=== PATIENT | male | born 1985 | race African-American/Black ===

== ENCOUNTER 2018-01-22 22:36 | Emergency (ER) | payer OTHER, SELFPAY ==
--- NOTE | 2018-01-23 06:54 | RAD ---
SOFT TISSUE NECK: Date: 01/22/18 FINDINGS: No opaque foreign bodies were seen. The epiglottis appears normal and the soft tissues are normal in thickness. IMPRESSION: No significant findings. POS: HOME
== END 2018-01-22 23:25 | disposition home or self-care (01) ==
LOC: BURERS 22:36
DX: J02.9 Acute pharyngitis, unspecified (principal); F17.210 Nicotine dependence, cigarettes, uncomplicated
CPT/HCPCS: 70360

== ENCOUNTER 2019-01-02 00:37 | Emergency (ER) | payer OTHER, SELFPAY ==
[2019-01-02] MEDS ORDERED: HYDROcodone/Acetaminophen 10/325 mg Tablet ONE (00:55)
[2019-01-02] MEDS ORDERED: AMOXicillin 250 MG CAP ONE (00:56)
== END 2019-01-02 01:00 | disposition home or self-care (01) ==
LOC: BURERS 00:37
DX: K04.7 Periapical abscess without sinus (principal); F17.210 Nicotine dependence, cigarettes, uncomplicated; Z79.899 Other long term (current) drug therapy
CPT/HCPCS: 99282

== ENCOUNTER 2022-06-20 11:03 | Emergency (ER) | payer SELFPAY | END 2022-06-20 11:29 | disposition home or self-care (01) | LOC: BURERS 11:03 | DX: K08.89 Other specified disorders of teeth and supporting structures (principal); F17.210 Nicotine dependence, cigarettes, uncomplicated | CPT/HCPCS: 99282 ==